=== PATIENT | male | born 1975 | race Two or more races ===

== ENCOUNTER 2019-04-27 15:18 | Emergency (ER) | payer OTHER ==
[~2019-04-27] VITALS: Ht 193 cm; Wt 78.2 kg
[2019-04-27 15:22] VITALS: BP 132/94
[2019-04-27] MEDS ORDERED: TRAM50TA2 PO (17:03)
== END 2019-04-27 17:25 | disposition home or self-care (01) ==
LOC: ER 15:18
DX: S62.617A Displaced fracture of proximal phalanx of left little finger, initial encounter for closed fracture (principal); F10.99 Alcohol use, unspecified with unspecified alcohol-induced disorder; Z98.890 Other specified postprocedural states; Z79.899 Other long term (current) drug therapy; W18.39XA Other fall on same level, initial encounter; Y93.89 Activity, other specified; Y92.89 Other specified places as the place of occurrence of the external cause; Y99.8 Other external cause status; Y90.9 Presence of alcohol in blood, level not specified
CPT/HCPCS: 29125; 73130; 99283

== ENCOUNTER 2019-05-19 15:11 | Outpatient (CLI) | payer OTHER ==
[~2019-05-19 15:11] MED LIST: TRAM50TA2 PO
== END 2019-05-19 16:53 | disposition home or self-care (01) ==
LOC: ORTHO 15:11
PROVIDERS: ATTEND Orthopaedic Surgery
DX: S62.617D Displaced fracture of proximal phalanx of left little finger, subsequent encounter for fracture with routine healing (principal); X58.XXXD Exposure to other specified factors, subsequent encounter; Z87.891 Personal history of nicotine dependence
CPT/HCPCS: 73140